=== PATIENT | female | born 1960 | race Caucasian/White ===

== ENCOUNTER 2020-09-25 14:25 | Inpatient (IN) | payer OTHER ==
[2020-09-25] MEDS ORDERED: LIDOCAINE 5% TOPICAL PATCH TP ONE (15:27)
[2020-09-25] MEDS ORDERED: METHOCARBAMOL 500 MG TABLET PO ONE (15:27)
[2020-09-25] MEDS ORDERED: KETOROLAC TROMETHAMINE 60 MG/2 ML VIAL IM ONE (15:30)
[2020-09-25] MEDS ORDERED: METHOCARBAMOL 500 MG TABLET ONE (15:32)
[2020-09-25] MEDS ORDERED: KETOROLAC TROMETHAMINE 60 MG/2 ML VIAL ONE (15:32)
[2020-09-25] MEDS ORDERED: LIDOCAINE 5% TOPICAL PATCH ONE (15:33)
[2020-09-25 18:45] LABS: BASO % 3.9 % (0-2.0); EOS % 4.3 % (0-4.5); HEMATOCRIT 43.1 % (32.4-45.2); HEMOGLOBIN 14.6 GM/dl (10.7-15.3); LYMPH % 30.2 % (8-40); MCH 30.2 pg (25.7-33.7); MCHC 33.9 g/dl (32.0-36.0); MEAN CELL VOLUME 89.2 fl (80-96); MEAN PLT VOLUME 7.9 fl (7.5-11.1); MONO % 4.8 % (3.8-10.2); NEUT % 56.8 % (42.8-82.8); PLATELET COUNT 332 K/MM3 (134-434); RBC 4.83 M/mm3 (3.60-5.2); RDW 13.5 % (11.6-15.6); WHITE BLOOD COUNT 8.1 K/mm3 (4.0-10.8)
[2020-09-25 19:02] LABS: ALBUMIN 4.4 g/dl (3.4-5.0); BILIRUBIN,TOTAL 0.6 mg/dl (0.2-1); CALCIUM 9.2 mg/dl (8.5-10); CREATININE 0.7 mg/dl (0.55-1.3); POTASSIUM 3.7 mmol/L (3.5-5.1); TOT PROT 7.5 g/dl (6.4-8.2)
[2020-09-25 20:01] LABS: ACTIVATED PTT 27.6 SECONDS (25.2-36.5); INR 1.13 (0.82-1.09); PROTHROMBIN TIME (PATIENT) 12.6 SEC (10.2-13.0)
[2020-09-25] MEDS ORDERED: METHOCARBAMOL 500 MG TABLET PO PRN (21:21)
[2020-09-25] MEDS ORDERED: oxyCODONE HCL 5 MG TABLET PO PRN (21:27)
[2020-09-25 21:44] VITALS: BMI 33.4
[2020-09-25] MEDS ORDERED: LIDOCAINE PATCH REMOVAL MC SCH (22:00)
[2020-09-26 08:29] LABS: BASO % 1.7 % (0-2.0); EOS % 5.4 % (0-4.5); HEMATOCRIT 40.5 % (32.4-45.2); HEMOGLOBIN 13.4 GM/dl (10.7-15.3); LYMPH % 37.3 % (8-40); MCH 29.2 pg (25.7-33.7); MCHC 33.1 g/dl (32.0-36.0); MEAN PLT VOLUME 8.1 fl (7.5-11.1); MONO % 6.3 % (3.8-10.2); NEUT % 49.3 % (42.8-82.8); PLATELET COUNT 288 K/MM3 (134-434); RBC 4.59 M/mm3 (3.60-5.2); RDW 13.1 % (11.6-15.6); WHITE BLOOD COUNT 6.4 K/mm3 (4.0-10.8)
[2020-09-26 08:50] LABS: ALBUMIN 3.9 g/dl (3.4-5.0); BILIRUBIN,TOTAL 0.8 mg/dl (0.2-1); CREATININE 0.7 mg/dl (0.55-1.3); POTASSIUM 3.8 mmol/L (3.5-5.1); TOT PROT 6.4 g/dl (6.4-8.2)
[2020-09-26] MEDS ORDERED: PT OWN MED DRAWER 7, Y5N ONE (09:30)
[2020-09-26] MEDS ORDERED: METHOCARBAMOL 500 MG TABLET ONE (09:33)
[2020-09-26] MEDS ORDERED: KETOROLAC TROMETHAMINE 15 MG/ML VIAL IVPUSH PRN (09:40)
[2020-09-26] MEDS: LOSARTAN 50MG/HCTZ 12.5MG 1 TAB PO SCH (10:02)
[2020-09-26] MEDS: ENOXAPARIN NA (PORCINE) 40 MG/0.4 ML DISP.SYRIN SQ SCH (10:02)
[2020-09-26] MEDS: LIDOCAINE 5% TOPICAL PATCH TP SCH (11:29)
[2020-09-26] MEDS ORDERED: LIDOCAINE PATCH REMOVAL MC SCH (22:00)
[2020-09-26] MEDS ORDERED: ATORVASTATIN CA 10 MG TABLET (FP) PO SCH (22:00)
[2020-09-27 09:37] LABS: ALBUMIN 4.5 g/dl (3.4-5.0); BASO % 0.3 % (0-2.0); BLOOD UREA NITROGEN 12.8 mg/dL (7-18); EOS % 1.8 % (0-4.5); HEMATOCRIT 43.7 % (32.4-45.2); HEMOGLOBIN 14.9 GM/dL (10.7-15.3); LYMPH % 16.3 % (8-40); MAGNESIUM 2.1 mg/dL (1.8-2.4); MEAN CELL VOLUME 88.3 fl (80-96); MEAN PLT VOLUME 8.6 fl (7.5-11.1); MONO % 6.1 % (3.8-10.2); NEUT % 75.5 % (42.8-82.8); PLATELET COUNT 388 K/MM3 (134-434); RBC 4.95 M/mm3 (3.60-5.2); WHITE BLOOD COUNT 10.1 K/mm3 (4.0-10.0)
[2020-09-27 09:38] LABS: CREATININE 0.7 mg/dL (0.55-1.3)
[2020-09-27 09:40] LABS: BILIRUBIN,TOTAL 0.7 mg/dL (0.2-1)
[2020-09-27 09:41] LABS: TOT PROT 8.3 g/dl (6.4-8.2)
[2020-09-27 09:53] LABS: POTASSIUM 3.7 mmol/L (3.5-5.1)
[2020-09-27] MEDS: LOSARTAN 50MG/HCTZ 12.5MG 1 TAB PO SCH (09:58)
[2020-09-27] MEDS: ENOXAPARIN NA (PORCINE) 40 MG/0.4 ML DISP.SYRIN SQ SCH (09:59)
[2020-09-27] MEDS: LIDOCAINE 5% TOPICAL PATCH TP SCH (09:59)
[2020-09-27 10:12] VITALS: BP 168/65; PULSE 84; TEMP 98
== END 2020-09-27 16:00 | disposition home or self-care (01) | DRG 40 ==
LOC: FER 14:25 → FM/S 18:25
PROVIDERS: ADMIT Internal Medicine; ATTEND Nurse Practitioner Acute Care
DX: G95.29 Other cord compression (principal); M54.16 Radiculopathy, lumbar region; M51.27 Other intervertebral disc displacement, lumbosacral region; M48.061 Spinal stenosis, lumbar region without neurogenic claudication
CPT/HCPCS: 36415; 72131-TC; 72148-TC; 73523-TC-FY; 80053; 81003; 83735; 85025; 85610; 85730; 86850; 86900; 86901; 93005; 97116-GP; 97162-GP; 99285-25; C9803; U0003